=== PATIENT | female | born 1955 | race Caucasian/White ===

== ENCOUNTER 2024-03-16 10:07 | Outpatient (REF) | payer OTHER, SELFPAY ==
[2024-03-16 10:29] VITALS: BP 144/73; PULSE 80; RESP 16; TEMP 36.3; O2SAT 98; BMI 35.4
--- OUTSIDE RECORDS SUMMARY | 2024-03-16 10:47 | XMS_ITS | Clinical Summary ---
Author Organization [facility] [address] [facility] l[address] Address [address] [place] [address] Phone Care Team Providers Care [employer] Professor Name Role Phone Marietta Goetz MD Primary Care Prov ider Allergies Active Allergy Reactions Criticality Noted Date Comments Donepezil Hcl Other 08/10/2016 tremors Primidone 06/06/2021 Sulfa (Sulfonamide Antibiotics) Rash 01/12 Sulfamethoxazole-Trimethoprim Rash 2016 Medications Medication Sig Dispensed Refills Start Date End Date Status estradioL (ESTRACE) 0.01 % (0.1 mg/gram) vaginal cream Please use 0.5g (a pea-sized amount) on your finger and place inside the vagina for 2 weeks at night, and then decrease to twice a week at night (Mondays and ) 05/06/2023 05/30/2024 Active propranolol LA (INDERAL LA) 60 mg 24 hr capsule 12/09/2022 Active rivastigmine (EXELON) 6 mg capsule Take 6 mg by mouth 2 times daily. Active diclofenac (Voltaren Arthritis Pain) 1 % topical gel PLACE 4G ON SKIN 2 TIMES DAILY FOR 30 DAYS. APPLY TO PAINFUL AREA OF FOOT TWICE DAILY FOR 30 DAYS 01/29/2019 Active clonazePAM (KlonoPIN) 0.5 mg tablet Take 1 tablet (0.5 mg total) by mouth 2 (two) times a day if needed for anxiety. Max Daily Amount: 1 mg 56 tablet 2 01/10/2024 Active pantoprazole (PROTONIX) 40 mg EC tablet TAKE 1 TABLET BY MOUTH EVERY DAY 30 tablet 10 02/11/2024 Active buPROPion SR (WELLBUTRIN SR) 150 mg 12 hr tablet TAKE 1 TABLET BY MOUTH DAILY 30 tablet 10 02/11/2024 Active atorvastatin (LIPITOR) 20 mg tablet TAKE 1 TABLET BY MOUTH EVERY DAY 30 tablet 10 02/11/2024 Active ibuprofen (ADVIL,MOTRIN) 800 mg tablet TAKE 1 TABLET BY MOUTH EVERY 8 HOURS NEEDED FOR PAIN 270 tablet 1 02/14/2024 Active sertraline (ZOLOFT) 100 mg tablet TAKE 2 AND 1/2 TABLETS BY MOUTH ONCE DAILY TO EQUAL 250 MG 225 tablet 02/18/2024 Active DILT-XR 240 mg 24 hr capsule TAKE 1 CAPSULE BY MOUTH EVERY DAY 90 capsule 1 03/06/2024 Active sertraline (ZOLOFT) 100 mg tablet TAKE 2 AND 1/2 TABLETS BY MOUTH ONCE DAILY TO EQUAL 250 MG 08/05/2023 02/18/2024 Discontinued dilTIAZem XR (DILT-XR) 240 mg 24 hr capsule TAKE 1 CAPSULE BY MOUTH EVERY DAY 07/16/2023 03/06/2024 Discontinued Active Problems Problem Noted Date Diagnosed Date Dyspepsia 11/11/2023 Nausea 11/11/2023 Queasiness 11/11/2023 Disabling essential tremor 07/08/2019 Overview (11/11/2023): [facility] neurology Headaches due to old head trauma 07/08/2019 Memory dysfunction following head trauma 020 Reactive airways dysfunction syndrome 09/16/2018 Obesity 06/23/2018 Anxiety 05/07/2017 Atelectasis 05/07/2017 Evidence of airways hyperrea ctivity without diagnosis of asthma 05/07/2017 History of cannabis abuse 05/07/2017 Chronic renal insufficiency, stage 2 (mild) 04/12 Major depression, chronic 05/06/2017 Tremors of nervous system 05/09/2016 Midline cystocele 05/01/2016 Vascular dementia without behavioral disturbance 06/22/2015 PTSD (post-traumatic stress disorder) 04/11/2015 Low back pain 05/15/2011 Carpal tunnel syndrome 01/31/2010 Glaucoma 01/31/2010 Hypercholesteremia 01/31/2010 Panic attacks 01/31/2010 Encounters Date Type Department Care Team Description 12/16/2023 Telephone Adult Medicine - [address] [address] [place], [place] Medicare Annual Wellness Visit Subsequent (AWV DUE 2023) from Last 3 Months Immunizations Name Administration Dates Next Due Influenza Quadravalent, MDCK , 0.5ml, preservative free (Flucelvax) 6mo and older 10/22/2017 Influenza Quadravalent, MDCK , 0.5ml, with preservative (Flucelvax) 6mo and older 12/03/2016 Influenza trivalent, 0.5mL ( Fluzone High-dose) 65yo and older 12/12/2022,01/16/2022,11/06/2019,11/17,10/26/2015,12/16/2013,02/15/2012 Influenza, Unspecified 01/15/2021 [employer] SARS-CoV-2 COVID-19, mRNA, LNP-S, preservative free 05/12/2020 Pneumococcal conjugate 13 va lent (Prevnar 13, PCV13) 2mo and older 11/17/2018 Pneumococcal conjugate 20 va lent (Prevnar 20, PCV 20) 2mo and older 07/11/2022 Pneumococcal polysaccharide 23 valent (Pneumovax 23) 2yo and older 01/09/2015 Td Tetanus diptheria (Tdvax) 7yo and older 06/06/2021 Tdap Tetanus diptheria acell ular pertussis (Boostrix; Adacel) 7yo and older 01/31/2010 Surgical History Surgery Date Site/Laterality Comments OTHER SURGICAL HISTORY PROCEDURE: BREAST CYST,FLUID FOR CYTOLOGY EXAM OTHER SURGICAL HISTORY PROCEDURE: CO EXC B9 LESION MRGN XCP SK TG T/A/L 0.5 CM/< CHOLECYSTECTOMY PROCEDURE: CO CHOLECYSTECTOMY OTHER SURGICAL HISTORY PROCEDURE: CO TONSILLECTOMY & ADENOIDECTOMY AGE 10/> BREAST BIOPSY Right PROCEDURE: BX BREAST; PERC NEEDLE CORE W/IMAG GUID; COMMENT: + 20 yrs b9 BREAST SURGERY PROCEDURE: CO UNLISTED PROCEDURE BREAST; COMMENT: removed cyst in rt breast Medical History Medical History Date Comments Glaucoma DX:Glaucoma Carpal tunnel syndrome, bilateral DX:Carpal tunnel syndrome, bilateral Post traumatic stress disorder D X:Post traumatic stress disorder Nausea DX:Nausea Queasiness DX:Queasiness Dyspepsia DX:Dyspepsia Family History Medical History Relation Name Comments No Known Problems Brother No Known Problems Daughter Other: heart problems Father Other cancer Mother vulvar Diabetes Sister No Known Problems Son Breast cancer Neg Hx Relation Name Status Comments Brother Alive Daughter Alive Father Mother Sister Alive Son Alive Social History Tobacco Use Types Packs/Day Years Used Date Smoking Tobacco: Never Smokeless Tobacco: Never Alcohol Use Standard Drinks/Week Comments No 0 (1 standard drink = 0.6 oz pur e alcohol) Sex and Gender Information Value Date Recorded Sex Assigned at Not on file Gender Identity Not on file Sexual Orientation Not on file Obstetrics History Last Filed Vital Signs Vital Sign Reading Time Taken Comments Blood Pressure 114/68 06/13/2023 10:51 AM EDT Pulse 65 06/13/2023 10:51 AM EDT Temperature - - Respiratory Rate - - Oxygen Saturation - - Inhaled Oxygen Concentration - - Weight 79.9 kg (176 lb 3.2 oz) 06/13/2023 10:51 AM EDT Height 160 cm (5' 3 ) 06/13/2023 10:51 AM EDT Body Mass Index 31.21 06/13/2023 10:51 AM EDT Plan of Treatment Upcoming Encounters Date Type Department Care Team (Late st Contact Info) Description 04/16/2024 11:15 AM EST Office Visit Adult Medicine - [place] [address] [place] [address] Marin Jones PA [address] [place] [address] Health Maintenance Due Date Last Done Comments Zoster Vaccines (1 of 2) 05/25/2003 COVID-19 Vaccine (3 - Pfizer risk series) 07/06/2020 06/08/2020, 05/12/2020 Depression Screening 01/20/2022 Falls Risk Assessment 01/20/2022 Osteoporosis Screening (Bone Density Screening) 01/20/2022 Social Influencers of Health Screening 01/20/2022 Breast Cancer Screening 11/10/2022 11/11/19 21, 10/30/2019, 10/27/2018, Additional history exists Influenza Vaccine (#1) 2023 3, 01/16/2022, 01/15/2021, Additional history exists Cholesterol Screening (Lipid Panel) 06/06/2026 06/06/2021 RSV Immunization Patients 60+ Years Old (1 - 1-dose 75+ series) 2028 DTaP,Tdap,and Td Vaccines (3 - Td or Tdap) 06/07/2031 06/06/2021, 01/31/2010 Colorectal Cancer Screening: Colonoscopy 11/08/2031 11/07/2021 Hepatitis C Screening Completed 05/09/2016 Pneumococcal Vaccine: 65+ Years Completed 07/11/2022, 11/17/2018, 01/09/2015 HIB Vaccines Aged Out No longer eligi ble based on patient's age to complete this topic HPV Vaccines Aged Out No longer eligi ble based on patient's age to complete this topic Hepatitis A Vaccines Aged Out No long er eligible based on patient's age to complete this topic Hepatitis B Vaccines Aged Out No long er eligible based on patient's age to complete this topic IPV Vaccines Aged Out No longer eligi ble based on patient's age to complete this topic MMR Vaccines Aged Out No longer eligi ble based on patient's age to complete this topic Meningococcal ACWY Vaccine Aged Out N o longer eligible based on patient's age to complete this topic RSV Immunization Patients Under 20 months Aged Out No longer eligible based on patient's age to complete this topic Varicella Vaccines Aged Out No longer eligible based on patient's age to complete this topic Procedures Procedure Name Priority Date/Time Associated Diagnosis Comments COLONOSCOPY Routine 11/07/2021 LIPID PANEL Routine 06/06/2021 SCREENING MAMMOGRAPHY BI 2-VIEW BREAST INC CAD Routine 11/10/2020 10:05 AM EDT Encounter for screening mammogram for malignant neoplasm of breast HEPATITIS C SCREENING Routine 05/09/2016 from Last 3 Months or Most Recently Relevant to Health Maintenance Results * Colonoscopy (11/07/2021) Pathologist [facility] Colonoscopy No Interpretation , Abstracted Anatomical Region Laterality Modality Other Historical Provider MD JONNY SALAZAR E * (ABNORMAL) Lipid panel (06/06/2021) LDL/HDL Ratio 4 0 - 4 Triglycerides 362(A) 0 - 150 mg/dL Cholesterol 219(A) 0 - 200 mg/dL HDL 56 40 mg/dL LDL Cholesterol 91 0 - 100 mg/dL Blood Venous blood specimen / Unknown Historical Provider LAB BLOOD ORDERAB LES * SCREENING MAMMOGRAPHY BI 2-VIEW BREAST INC CAD (11/10/2020 10:05 AM EDT) Anatomical Region Laterality Modality Radiographic Gini ging 10/30/2019 9:42 AM EDT Narrative 11/10/2020 5:58 PM EDT This is a summary report. The complete report is available in the patient's medical record. If you cannot access the medical record, please contact the sending organization for a detailed fax or copy. Full field digital screening 2D and tomosynthesis mammography, reviewed with CAD and compared to previous. The breast tissue is heterogeneously dense, limiting sensitivity. No suspicious mass, architectural distortion or suspicious calcifications are identified. IMPRESSION: : Dense breast tissue, limiting the sensitivity of mammography. No mammographic evidence of malignancy. BIRADS 1-Negative; N. 5 year breast cancer risk assessment 1.8 % Lifetime breast cancer risk assessment 6.1 % Breast cancer risk category Low (<15%) Procedure Note Jenni Panchal MD - 01/30/2022 This is a summary report. The complete report is available in thepatient's medical record. If you cannot access the medical record, pleasecontact the sending organization for a detailed fax or copy. Full field digital screening 2D and tomosynthesis mammography, reviewedwith CAD and compared to previous. The breast tissue is heterogeneouslydense, limiting sensitivity. No suspicious mass, architectural distortionor suspicious calcifications are identified. IMPRESSION: : Dense breast tissue, limiting the sensitivity of mammography. Nomammographic evidence of malignancy. BIRADS 1-Negative; N. 5 year breast cancer risk assessment 1.8 % Lifetime breast cancer risk assessment 6.1 % Breast cancer risk category Low (<15%) Marietta Goetz MD IMG XR PRO CEDURES * Hm Hepatitis C Screening (05/09/2016) Hepatitis C Screening Abstracted Historical Provider MD JONNY Hatfield from Last 3 Months or Most Recently Relevant to Health Maintenance Care Teams [employer] Professor Relationship Specialty Start Date End Date Marietta Goetz MD PCP - General 01/09/10
== END 2024-03-16 10:08 | disposition home or self-care (01) ==
LOC: HO.MS 10:07
PROVIDERS: Visit Provider Ophthalmology
PROC: (CPT 66821; principal; 2024-03-16 11:40)
DX: H26.491 Other secondary cataract, right eye (principal)
CPT/HCPCS: 66821